=== PATIENT | male | born 2000 | race Two or more races ===

== ENCOUNTER 2024-11-12 23:11 | Emergency (ER) | payer MEDICAID, SELFPAY ==
[2024-11-12 23:11] VITALS: BMI 24.6
[2024-11-12 23:30] VITALS: BP 130/82; PULSE 100; RESP 18; TEMP 38.3; O2SAT 99
[2024-11-13] MEDS: AMOXICILLIN/POT CLAV 875 TABLET 1 TAB PO (00:06)
[2024-11-13] MEDS: NAPROXEN 250 MG TABLET 500 MG PO (00:06)
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
== END 2024-11-13 00:08 | disposition home or self-care (01) ==
LOC: SERX 11-13 00:02
PROVIDERS: Emergency Provider Emergency Medicine
DX: K04.7 Periapical abscess without sinus (principal)
CPT/HCPCS: 99282; A9270